=== PATIENT | female | born 1990 | race Caucasian/White ===

== ENCOUNTER 2017-03-13 15:28 | Outpatient (CLI) | payer OTHER | END 2017-03-13 15:30 | LOC: LAB 15:28 | PROVIDERS: ATTEND Internal Medicine Endocrinology, Diabetes & Metabolism | DX: E05.90 Thyrotoxicosis, unspecified without thyrotoxic crisis or storm (principal) | CPT/HCPCS: 36415; 84439; 84443 ==

== ENCOUNTER 2017-04-30 11:16 | Outpatient (CLI) | payer OTHER | END 2017-04-30 11:17 | LOC: LAB 11:16 | PROVIDERS: ATTEND Internal Medicine Endocrinology, Diabetes & Metabolism | DX: E05.90 Thyrotoxicosis, unspecified without thyrotoxic crisis or storm (principal) | CPT/HCPCS: 36415; 84439; 84443 ==

== ENCOUNTER 2018-08-09 10:15 | Outpatient (CLI) | payer OTHER ==
[2018-08-09 11:28] LABS: eGFR (Non-African) > 60
== END 2018-08-09 10:25 ==
LOC: LAB 10:15
PROVIDERS: ATTEND Nurse Practitioner Family
DX: E03.9 Hypothyroidism, unspecified (principal)
CPT/HCPCS: 36415; 80053; 80061; 84439; 84443; 84481

== ENCOUNTER 2019-01-01 15:23 | Outpatient (CLI) | payer OTHER ==
[2019-01-01 16:45] LABS: TSH 0.12 mIU/l (0.465-4.685)
== END 2019-01-01 15:24 ==
LOC: LAB 15:23
PROVIDERS: ATTEND Nurse Practitioner Family
DX: E05.00 Thyrotoxicosis with diffuse goiter without thyrotoxic crisis or storm (principal)
CPT/HCPCS: 36415; 84439; 84443; 84481

== ENCOUNTER 2019-01-17 22:10 | Emergency (ER) | payer OTHER ==
--- NOTE | 2019-01-17 22:22 | ED Physician Documentation ---
General Adult - HISTORIAN Historian: patient - HPI Stated Complaint: R knee injury Chief Complaint: General Adult Onset: hours Timing: still present Severity: moderate Further Comments: yes (Pt is a 28 yo female with a R knee injury. 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 Pt is uninjured except for her R knee. Pt has pain with weight bearing. 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.) - ROS CONST: no problems EYES/ENT: none CVS/RESP: none GI/: none MS/SKIN/LYMPH: other (R knee pain) - PAST HX Past History: other (thyroid d/o, thyroidectomy) Allergies/Adverse Reactions: Allergies Allergy/AdvReac Type Severity Reaction Status Date / Time Penicillins Allergy Unverified 11/20/17 13:05 Home Medications: Ambulatory Orders Medication Instructions Recorded Cyclobenzaprine HCl 10 mg PO PRN u2 11/20/17 Levothyroxine Sodium 50 mcg PO DAILY u2 11/20/17 Levothyroxine Sodium 200 mcg PO DAILY u2 11/20/17 - SOCIAL HX Smoking History: non-smoker - FAMILY HX Family History: No - REVIEWED ASSESSMENTS Nursing Assessment Reviewed: Yes Vitals Reviewed: Yes Progress - Progress Progress: X-ray R knee: neg crutches knee immobilizer Tylenol/Ibuprofen pt has ortho appointment already in 6 days. General Adult Physical Exam - PHYSICAL EXAM GENERAL APPEARANCE: moderate distress NECK: normal inspection RESPIRATORY: no resp distress, chest non-tender, breath sounds normal CVS: reg rate & rhythm, heart sounds normal BACK: normal inspection, no CVA tenderness SKIN: warm/dry, normal color EXTREMITIES: other (R knee tenderness, pain with weight bearing, no ligamentous instability, no effusion; apprehension with full extention.) NEURO: oriented X3, motor nml, sensation nml Discharge Clincal Impression: Injury of right knee Qualifiers: Encounter type: initial encounter Qualified Code(s): S89.91XA - Unspecified injury of right lower leg, initial encounter Referrals: Iris Chaney MD [STAFF PHYSICIAN] - Condition: Stable Disposition: 01 HOME, SELF-CARE Decision to Admit: NO Decision Time: 23:09
[2019-01-17 22:28] VITALS: BP 156/111
--- NOTE | 2019-01-17 22:59 | Diagnostic Imaging Report ---
RAINER BORJAS [facility] [address] [facility] [address] [address] Report Submission Date: Jan 17, 2019 10:56:11 PM CDT Patient Study Name: HITESH WOOD Date: Jan 17, 2019 10:21:21 PM CDT Modality Type: DX Gender: F Description: KNEE 3 VIEWS : 89 Institution: [facility] Physician: RAINER BORJAS Three views of the right knee Clinical history: Fall today. Pain. Findings: Examination right knee in AP, lateral and sunrise views fails to demonstrate evidence of fracture, dislocation or other bone or joint pathology. Electronically signed on Jan 17, 2019 10:56:11 PM CDT by: Marcin TEJADA
== END 2019-01-17 23:21 | disposition home or self-care (01) ==
LOC: ED 22:10
DX: S89.91XA Unspecified injury of right lower leg, initial encounter (principal); W10.9XXA Fall (on) (from) unspecified stairs and steps, initial encounter; Y99.8 Other external cause status
CPT/HCPCS: 73562; 99282

== ENCOUNTER 2019-01-22 10:36 | Outpatient (CLI) | payer OTHER ==
--- NOTE | 2019-01-28 15:47 | CONSULTATION REPORT ---
DRAFT CHIEF COMPLAINT: Bilateral knee pain. HISTORY OF PRESENT ILLNESS: This 28-year-old obese (BMI 42.60) white female is seen for recommendations regarding evaluation and treatment of bilateral knee pain. She indicates that she has had longstanding pain in the left knee, which she would say hurts worse than the right overall. 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 She did not see a doctor about that, did see an life trainer. She is not sure what the diagnosis was, but thinks it may have been a knee dislocation of some type. In any event, she did gradually improve, although the left knee has continued to bother her over time. She says that it has been worse in the last several years. She says the knee pain is located in the front and inside on the left. She describes the pain as aching, dull, sharp, mild to moderate to severe depending on the situation, overall worsening, however. She rates her pain at rest as 2-3/10 and pain with activity as 7-8/10. She does report some stiffness in the knee and limitation of knee motion. She says her left knee pain is worse with running, pivoting, climbing stairs, descending stairs, squatting, kneeling, rising after sitting, lateral movements, standing and getting in and out of a car or chair. Heat and ice sometimes make her knee pain better as do nonsteroidal medications and rest. Pain has progressed with activities of daily living. She does not have night pain nor does the knee pain awaken her on either side. She does not report a fear of falling. She does report she has some giving out symptoms. She does report mild difficulty in ambulating. She has not used an ambulatory assistive device. She has not been taking narcotic pain medications for this problem. She has tried [id number] nonsteroidal medication. She has not had any steroid injections or viscosupplementation. She has done some physical therapy off and on for about a month, has used a cheap knee brace from [employer] for a couple of years intermittently. She has been working on weight loss off and on for her whole life, does take Tylenol and sees the chiropractor for her pain. She has lost about 27 pounds through nonoperative means, exercise and dietary changes. She denies numbness, tingling or weakness. She does report some intermittent lumbar and cervical spine pain. She has had CTs and x-rays in the past. Recent x-rays are reviewed of the left knee from earlier this year, and no acute bony abnormalities are evident. Right knee x-ray was obtained recently as well, about a week ago when she presented to the emergency department here at [place], and these were also read as showing no acute fractures. I reviewed both films and both right and left knee x-rays are essentially unremarkable with good joint space preservation, perhaps some very early suggestion of degenerative changes along the margins of the joint. With respect to the right knee, she recently hyperextended in a fall when she was walking down some stairs. She says that it hurt a great deal, but the emergency department told her that her x-rays were negative and it has actually started feeling better each day since the fall about five days ago. FAMILY HISTORY: The patient has negative family history. SOCIAL HISTORY: She smoked cigarettes intermittently, maybe one pack per month beginning in 2010, but quit altogether in June of this year. She does use alcohol on occasion, but denies history of alcohol abuse. She has history of 2011 marijuana usage, has not acknowledged any use of illicit substances since then. She does take fish oil. 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 The patient's current medications, allergies, and review of systems as well as surgical history, family history, social history, medical history are as noted on the patient intake. The patient sees Dr. Ras Zamora for ENT services in [place], [place], has Graves disease and underwent total thyroidectomy. She sees Dr. Torin Ferraro for endocrinology at [place] for this condition. She sees Kelsey Shultz, [facility], currently, also has seen Dr. Keyonna Andrade in [place], [place]. PHYSICAL EXAMINATION: On exam, the patient has mild limp. She does have on exam of the right knee, tenderness over the medial peripatellar region. There is some exacerbation of discomfort on attempted lateral patellofemoral subluxation, but she does not frankly dislocate the right or left knee patellofemoral joints. The left knee is more symptomatic and there is no obvious effusion, but her size does make it a little difficult to assess this on either side. The patient does have full range of motion in extension bilaterally. The right knee flexes to approximately 100 degrees, the left knee to approximately 100 degrees as well. There is tenderness left knee over the medial joint line greater than laterally. She again has some tenderness in the anterior knee on the left, most prominently in the suprapatellar region. There is mild crepitus on patellofemoral compression while flexing and extending the left knee. No patellofemoral tenderness noted on flexing and extending the right knee. The patient has negative Enrique, negative anterior drawer bilaterally. She has grossly symmetric quadriceps strength and tone. She does have grossly symmetric pulses at 2+ at the posterior tibialis bilaterally. The patient does have good capillary refill distally both lower extremities with normal skin color and appearance distally. HEENT: Normocephalic. Neck: Supple. Lungs: Clear to percussion bilaterally. Cardiovascular: Regular rate and rhythm. Abdomen: Soft, nontender. IMPRESSION: 1. Probable chronic anterior left knee pain with history of probable traumatic left patellar lateral dislocation 2010 with current anterior knee pain/patellar chondromalacia. Tight hamstrings are noted bilaterally. 2. Resolving right knee sprain. 3. Morbid obesity, current BMI 42.6, the patient reporting loss of 27 pounds prior to today's visit through nonsurgical means! 4. The patient on thyroid replacement post total thyroidectomy. 5. History of depression. RECOMMENDATIONS: Options are discussed with the patient. I believe she would benefit from some physical therapy for the anterior left knee pain, and prescription is provided for home program for physical therapy for rehab for left anterior knee pain, the patient needs stretching of the hamstrings, gastrocsoleus and gluteals with VMO strengthening (vastus medialis obliquus) strengthening; she is to avoid full bent to straight against resistance with that left knee. There is a history of remote probable left lateral patellar dislocation 2010. In addition, I recommend Aleve two p.o. b.i.d. with meals times six weeks. I did advise her that I would anticipate that the right knee will continue to improve on its own as it has been doing so far. I did recommend she recheck with me if not doing better in four to six weeks for left or right knee. We did have discussion regarding expectations and I did tell her I expect the right knee may resolve more quickly than the left knee symptoms and that she may have some residual symptomatology on the left given the underlying diagnosis and chronicity of that problem. I did encourage her on her weight loss efforts and I applaud those. Recheck with me if not better in four to six weeks, and p.r.n. Thank you for the opportunity to evaluate this pleasant patient for her bilateral knee pain. Mike Winn MD (Dictated/not signed) /[employer] [id number] Job #[id number] cjd MTDD
== END 2019-01-22 11:06 ==
LOC: ORHTO 10:36
PROVIDERS: ATTEND Orthopaedic Surgery
DX: S83.91XA Sprain of unspecified site of right knee, initial encounter (principal); E66.01 Morbid (severe) obesity due to excess calories; Z68.41 Body mass index [BMI] 40.0-44.9, adult; Z90.89 Acquired absence of other organs
CPT/HCPCS: 99203

== ENCOUNTER 2019-06-21 12:32 | Emergency (ER) | payer OTHER ==
[2019-06-21] MEDS: Lidocaine 1% 5ml 5 ML ONE (12:58)
[2019-06-21] MEDS: Lidocaine 1% 5ml 10 MG/ML VIAL IJ ONE (13:00)
--- NOTE | 2019-06-21 13:18 | ED Physician Documentation ---
General Adult - HISTORIAN Historian: patient - HPI Stated Complaint: Laceration Chief Complaint: Hand Injury Onset: hours Timing: still present - ROS CONST: no problems - PAST HX Past History: other (hypothyroidism) Other History: none Surgeries/Procedures: other (thyroidectomy) Immunizations: influenza. denies: tetanus Allergies/Adverse Reactions: Allergies Allergy/AdvReac Type Severity Reaction Status Date / Time Penicillins Allergy Verified 06/21/19 12:47 Home Medications: Ambulatory Orders Medication Instructions Recorded Levothyroxine Sodium 200 mcg PO DAILY u2 11/20/17 - SOCIAL HX Smoking History: non-smoker Alcohol Use: none Drug Use: none - FAMILY HX Family History: No - VITAL SIGNS Vital Signs: Vital Signs Temp Pulse Resp BP Pulse Ox 97.9 F 98 H 18 138/91 98 06/21/19 12:32 06/21/19 12:32 06/21/19 12:32 06/21/19 12:32 06/21/19 12:32 - REVIEWED ASSESSMENTS Nursing Assessment Reviewed: Yes Vitals Reviewed: Yes Procedures Wound Location: upper extremity (left index) Wound Length: 1.5 cm Wound's Depth, Shape: superficial, linear Wound Explored: no tendon laceration Betadine Prep?: No (Dynahex) Volume of Anesthetic: 1cc Wound Repaired With: sutures Suture Size/Type: 5:0 Number of Sutures: 3 Layer Closure?: No Sterile Dressing Applied?: Yes Splint Applied?: Yes Type of Splint Applied: finger ED Results Lab/Radiology - Orders Orders: ED Orders Category Date Time Status Lidocaine 1% 5ml [Xylocaine] Med 06/21/19 12:55 Discontinued 50 mg IJ NOW ONE Lidocaine 1% 5ml [Xylocaine] 5 ml Med 06/21/19 12:52 Discontinued .ROUTE .STK-MED General Adult Physical Exam - PHYSICAL EXAM GENERAL APPEARANCE: BP improved on discharge RESPIRATORY: no resp distress, breath sounds normal CVS: reg rate & rhythm SKIN: other (laceration over PIP joint over the left index) EXTREMITIES: normal range of motion NEURO: oriented X3 Discharge Clincal Impression: Laceration of finger Qualifiers: Encounter type: initial encounter Finger: index finger Damage to nail status: without damage Foreign body presence: without foreign body Laterality: left Qualified Code(s): S61.211A - Laceration without foreign body of left index finger without damage to nail, initial encounter Referrals: Kelsey Carrillo NP [Primary Care Provider] - 2 Days Additional Instructions: Keep laceration clean and dry, watch for infection. Have sutures removed in 7 days. Condition: Stable Disposition: 01 HOME, SELF-CARE Decision to Admit: NO Date of Decison to Admit: 06/21/19 Decision Time: 13:22
[2019-06-21 13:28] VITALS: BP 136/89
== END 2019-06-21 13:25 | disposition home or self-care (01) ==
LOC: ED 12:32
DX: S61.211A Laceration without foreign body of left index finger without damage to nail, initial encounter (principal); X58.XXXA Exposure to other specified factors, initial encounter
CPT/HCPCS: 12001; 99282; 99283